=== PATIENT | female | born 1985 | race Caucasian/White ===

== ENCOUNTER 2023-11-04 20:56 | Emergency (ER) | payer OTHER ==
[2023-11-04 21:04] VITALS: BP 127/80; PULSE 76; RESP 20; TEMP 97.8; BMI 28.8
[2023-11-04] MEDS ORDERED: AZITHROMYCIN 500 MG TABLET ONE (22:38)
[2023-11-04] MEDS: AZITHROMYCIN 250 MG TABLET PO ONE (22:40)
== END 2023-11-04 22:44 | disposition home or self-care (01) ==
LOC: JERFT 20:56 → JER 20:56 → JERFT 22:44
DX: J06.9 Acute upper respiratory infection, unspecified (principal); J01.00 Acute maxillary sinusitis, unspecified; R09.89 Other specified symptoms and signs involving the circulatory and respiratory systems; R05.9 Cough, unspecified; R53.83 Other fatigue
CPT/HCPCS: 99283-25